=== PATIENT | female | born 1975 | race Caucasian/White ===

== ENCOUNTER 2016-09-02 20:21 | Emergency (ER) | payer MEDICAID ==
[~2016-09-02 20:21] MED LIST: ALBUTEROL0.83 MG/ML INH; BACTRIM DS TABL1 TAB PO; CATAFLAM50 MG PO; CIPRO500 M1 PO; DARVOCET-N 1001 TAB PO; DECADRON4 MG PO; ERYTHROMYCIN PO; LEVAQUIN750 MG PO; LEXAPRO5 MG PO; LYZINE; PROTONIX40 M1 PO; VENTOLIN HFA18 GM INH
== END 2016-09-02 22:02 ==
LOC: EDMED 20:21
DX: R10.12 Left upper quadrant pain (principal); R07.81 Pleurodynia; V49.40XA Driver injured in collision with unspecified motor vehicles in traffic accident, initial encounter; Y92.410 Unspecified street and highway as the place of occurrence of the external cause